=== PATIENT | female | born 2000 | race Two or more races ===

== ENCOUNTER 2019-05-16 09:55 | Emergency (ER) | payer OTHER ==
[~2019-05-16] VITALS: Ht 152.4 cm; Wt 102.1 kg
[2019-05-16 10:21] VITALS: BP 130/82
== END 2019-05-16 12:13 | disposition home or self-care (01) ==
LOC: ER 09:58
DX: J06.9 Acute upper respiratory infection, unspecified (principal); N39.0 Urinary tract infection, site not specified